=== PATIENT | male | born 1955 | race Caucasian/White ===

== ENCOUNTER 2019-02-17 06:41 | Day surgery (SDC) | payer OTHER ==
[2019-02-16 11:54] VITALS: BMI 31.2
[2019-02-17 07:23] VITALS: TEMP 97.8
[2019-02-17 12:28] VITALS: BP 108/65; PULSE 62
--- NOTE | 2019-02-19 19:00 | PATH ---
Surgical Pathology Report Patient Name: JORGE WELCH [facility]. Rec. #: [id number] /Age/Gender: 1955 (Age: 63) / M Account: [id number] Location: [facility]-ENDOSCOPY Taken: 02/17/2019 Received: 02/17/2019 Reported: 02/19/2019 Physicians: Jeannie Wilcox M.D. Specimen(s) Received RECTUM POLYPS AND STALK BX AND HOT SNARE Clinical History Screening colonoscopy Postoperative diagnosis: Colon polyps Final Diagnosis RECTAL POLYPS AND STALK, BIOPSY: TUBULAR ADENOMA, TWO FRAGMENTS. ONE FRAGMENT OF HYPERPLASTIC POLYP. PORTION OF STALK, NEGATIVE FOR ADENOMA. Electronically Signed Homer Aguilera M.D. Gross Description Received in formalin labeled "rectum polyps and stalk biopsy," is a 0.7 x 0.4 x 0.3 cm sullivan, polypoid portion of soft tissue as well as a 0.5 x 0.4 x 0.3 cm sullivan portion of soft tissue, consistent with a polyp stalk. Separately received within the same container are 2 sullivan soft tissue fragments measuring 0.2 and 0.3 cm in greatest dimension. The specimen is entirely submitted in 3 cassettes as follows: 1-polyp; 2-polyp stalk; 3-two separately received soft tissue fragments. 02/17/201902/17/2019
== END 2019-02-17 10:20 | disposition home or self-care (01) ==
LOC: JASU-ENDO 06:41
PROVIDERS: ATTEND Internal Medicine Gastroenterology
PROC: 0DBE8ZX Excision of Large Intestine, Via Natural or Artificial Opening Endoscopic, Diagnostic (ICD-10-PCS; 2019-02-17)
PROC: 0DBP8ZX Excision of Rectum, Via Natural or Artificial Opening Endoscopic, Diagnostic (ICD-10-PCS; principal; 2019-02-17 08:00)
DX: Z12.11 Encounter for screening for malignant neoplasm of colon (principal); K62.1 Rectal polyp; K57.30 Diverticulosis of large intestine without perforation or abscess without bleeding; K64.8 Other hemorrhoids; D12.6 Benign neoplasm of colon, unspecified
CPT/HCPCS: 88305-TC